=== PATIENT | female | born 1975 | race Caucasian/White ===

== ENCOUNTER 2019-07-11 15:31 | Outpatient (CLI) | payer BC, SELFPAY ==
--- NOTE | 2019-07-11 15:45 | US_ITS ---
WS: [id number] US transvaginal [id number] REASON FOR EXAM: adnexal tenderness FINDINGS: Transvaginal evaluation. There is no evidence of the uterus. There is considerable bowel gas in the pelvis. There is no adnexal masses seen. No fluid collections are seen. US/US transvaginal [id number] IMPRESSION: Hysterectomized pelvis.
== END 2019-07-11 15:32 | disposition home or self-care (01) ==
LOC: US 15:32
PROVIDERS: Family Provider Nurse Practitioner Family; PCP Nurse Practitioner Family; Visit Provider Nurse Practitioner Family
DX: R10.2 Pelvic and perineal pain (principal)
CPT/HCPCS: 76830

== ENCOUNTER → 2019-09-18 15:01 | Outpatient (BNVA) | payer BC, SELFPAY | PROVIDERS: Family Provider Nurse Practitioner Family; PCP Nurse Practitioner Family; Visit Provider Nurse Practitioner Family | DX: R82.4 Acetonuria (principal); E16.2 Hypoglycemia, unspecified | CPT/HCPCS: 81000 ==

== ENCOUNTER → 2019-12-21 14:05 | Outpatient (BNVA) | payer BC, SELFPAY | PROVIDERS: Family Provider Nurse Practitioner Family; PCP Nurse Practitioner Family; Visit Provider Obstetrics & Gynecology | DX: F41.9 Anxiety disorder, unspecified (principal); N99.3 Prolapse of vaginal vault after hysterectomy; R32 Unspecified urinary incontinence | CPT/HCPCS: 80053 ==

== ENCOUNTER → 2020-01-17 10:13 | Outpatient (BNVA) | payer BC, SELFPAY | PROVIDERS: PCP Nurse Practitioner Family; Visit Provider Internal Medicine | DX: N99.3 Prolapse of vaginal vault after hysterectomy (principal); Z11.59 Encounter for screening for other viral diseases | CPT/HCPCS: 87635 ==

== ENCOUNTER 2020-01-22 11:24 | Observation (INO) | payer BC, SELFPAY ==
--- NOTE | 2020-01-16 10:53 | SUR.PREOP ---
Patient reports hypoglycemic. She states she starts feeling bad when drops down into the 80's. Patient requests her sugar be watched.
[2020-01-16 10:54] VITALS: BMI 24.5
[2020-01-22] VITALS (16 sets, daily range): BP systolic 109–142; BP diastolic 72–93; PULSE 59–83; RESP 14–20; TEMP 34.7–36.7; O2SAT 97–100
[2020-01-22] MEDS: sodium chloride 0.9% 1,000 ML 30 ML IV (08:28)
[2020-01-22] MEDS: ketorolac 30 mg/mL INJ IVP (08:28)
[2020-01-22] MEDS: phenazopyridine 100 mg Tablet 200 MG PO ×2 (08:28→14:17)
[2020-01-22 08:37] LABS: Glucose Point of Care 79 mg/dL (70-110)
--- NOTE | 2020-01-22 08:41 | ANES.PREANE2 ---
Pre-Anesthetic Assessment Pre-Anesthetic Assessment: Height/Weight: Height 1.55 m Weight 58.967 kg Temp Pulse Resp BP Pulse Ox 97.9 F 70 18 115/93 98 01/22/20 08:17 01/22/20 08:17 01/22/20 08:17 01/22/20 08:17 01/22/20 08:17 Preop Diagnosis: Vaginal vault prolapse after hysterectomy, Cystocele Proposed Procedure: Operation Date: 01/22/20 09:20 Proposed Procedures p Laparoscopic Uterosacral Ligament Suspen 51076 92020 98857 N99.3 N81.11(Not Applicable) - Sanchez More MD s Anterior Repair(Not Applicable) - Sanchez More MD s Cystoscopy(Not Applicable) - Sanchez More MD Familial anesthetic complications: None Was Beta Lisa taken within 24 hours: N/A Last intake: Intake Last Liquid Date 01/21/20 Last Liquid Time 22:20 Last Solid Date 01/21/20 Last Solid Time 20:00 Social: Social History: No alcohol and No tobacco Exam: Pre-Anes Outpt Exam: alert, oriented x 3, clear to auscultation bilaterally and regular rate & rhythm Airway: Cervical ROM: WNL MP: 2 Dentition: Full Metabolic: Comments: hypoglycemia - BG 70 administer amp D50 Anesthetic Plan: ASA status: 1 Anesthesia: General Risk of > 500 ml blood loss (7ml/kg in children): No Meds/Allergies Current Medications: Current Medications Generic Name Dose Route Start Last Admin Trade Name Freq PRN Reason Stop Dose Admin Sodium Chloride 1,000 mls @ 30 ml s/hr 01/22/20 07:30 01/22/20 08:28 Sodium Chloride 0.9% IV 01/23/20 07:29 30 mls/hr .Q24H DENIS Administration PFSH Anesthesia PFSH: Medical History Anxiety Hypoglycemia Surgical History History of bilateral tubal ligation (~11/2006) History of breast biopsy 02/2006 - left - benign. 08/2004 - Left - benign. History of dilation and curettage (~12/1995) miscarriage History of endometrial ablation (07/18/07) Therma[employer] endometrial ablation. Dx: Menorrhagia, Dysmenorrhea. Performed by Dr. More at [facility] in [place], [place]. History of hernia repair (~12/2011) History of laparoscopic cholecystectomy (~10/2005) History of laparoscopic-assisted vaginal hysterectomy (10/25/11) LAVH with Anterior colporrhaphy. Performed by Dr. Elizalde at [facility] in [place], [place] History of laparoscopy (~09/1999) evaluation of endometriosis Family History Father Hypertension Sister Hypertension Social History Smoking and tobacco status: never smoked Alcohol intake: never Data Anesthesia Other Labs: Laboratory Results - last 48 hr 01/22/20 08:34 POC Glucose 79 Cardiac Studies: No Data to Display
[2020-01-22] MEDS: dextrose 50% syringe 50 mL IVP (08:48)
--- NOTE | 2020-01-22 08:49 | W.PM.OPSUD ---
Surgery/Procedure H&P Update DATE OF PROCEDURE: January 22, 2020 DATE H&P PERFORMED: 01/18/20 H&P UPDATE INFORMATION: I have reviewed H&P completed within last 30 days, I have examined patient prior to procedure, No changes to prior documentation and H&P is in [facility] EMR on date indicated PREOP DIAGNOSIS: Vaginal vault prolapse after hysterectomy, Cystocele PLANNED PROCEDURE: Operation Date: 01/22/20 09:20 Proposed Procedures p Laparoscopic Uterosacral Ligament Suspen 65295 11649 90945 N99.3 N81.11(Not Applicable) - Sanchez More MD s Anterior Repair(Not Applicable) - Sanchez More MD s Cystoscopy(Not Applicable) - Sanchez More MD
[2020-01-22 08:50] LABS: Basophils # 0.1 10^3/uL (0.0-0.1); Eosinophils # 0.3 10^3/uL (0.0-0.8); Eosinophils % 5.8 %; Hematocrit 48.3 % (37.0-47.0); Hemoglobin 15.5 g/dL (11.5-15.3); Lymphocytes # 1.8 10^3/uL (0.8-4.8); Mean Corpuscular HGB Conc 32.1 g/dL (30.0-36.0); Mean Corpuscular Hemoglobin 29.7 pg (28.0-34.0); Mean Corpuscular Volume 92.5 fL (81-99); Mean Platelet Volume 10.1 fL (7.4-10.4); Monocytes # 0.4 10^3/uL (0.2-0.9); Monocytes % 6.6 %; Neutrophils # 3.26 10^3/uL (1.8-7.7); Neutrophils % 55.3 %; Nucleated Red Blood Cells % 0 %; Platelet Count 238 10^3/cmm (130-400); Red Blood Count 5.22 10^6/uL (4.1-5.3); Red Cell Distribution Width 12.5 % (12.1-15.1); White Blood Count 5.9 10^3/uL (4.0-10.0)
--- NOTE | 2020-01-22 10:27 | SUR.OPER ---
Called and notified him of surgical status.
--- NOTE | 2020-01-22 11:24 | P.OP_ITS ---
Operative Report Date of procedure: January 22, 2020 Pre-op Diagnosis: Vaginal vault prolapse after hysterectomy, Cystocele Post-op Diagnosis: Vaginal vault prolapse after hysterectomy Procedure Done: Laparoscopic uterosacral ligament suspension with enterocele repair Specimens removed/disposition: None Surgeon: Sanchez More [employer] Lab Technician: Kandis Anesthesia: General Estimated blood loss (mL): 10 IV fluids (mL): 900 Complications: None Findings: Second-degree vault prolapse with second to third-degree cystocele. Filmy adh esions between the sigmoid and the vaginal cuff. Normal-appearing ovaries bilaterally. Enterocele present. Brief History: Patient is a 44-year-old white female 4, para 3-0-1-3 who is status post hysterectomy. She presented to the office on 12/21/2019 with a complaint of prolapse problems which is been present for approximately 3 years. She stated it has been slowly worsening over that time. She states she now notices a bulge at the vaginal opening which occasionally protrudes beyond. She reports having the sensation that she needs to urinate all the time and will urinate small volumes. She denied leaking with coughing, sneezing, laughing, unless she has a full bladder. She reported urinary urgency with incontinence. She had had a prior anterior repair at the time of her hysterectomy in 2011. On exam, she was noted to have a first to second-degree vaginal vault prolapse with a second- degree cystocele at rest and third degree cystocele with Valsalva. I had discussed with her previously that re-supporting the vaginal vault may correct the cystocele without treatment for the itself being needed. Treatment options had been discussed with her and she was presenting for surgical repair. Procedure: The patient was taken to the operating room where general anesthesia was obtained. She was prepped and draped in the usual sterile fashion in the dorsal supine position with legs in Rangel style stirrups. Sequential compression boots were placed prior to starting the case. Bladder was drained and exam under anesthesia was performed. She was found to have second-degree vaginal vault prolapse with second to third-degree cystocele. The infraumbilical region was injected with 2% lidocaine with epinephrine. Skin incision was made with a knife in the lower edge of the navel and a size 10 trocar and sheath were inserted under direct visualization using an Optiview type technique. Trocar was removed and replaced with just the laparoscope confirming intra-abdominal placement. The anterior abdominal wall was inspected and noted to be free of adhesions. In the right and left lower quadrants and approximately 2 fingerbreadths above the pubic symphysis in the midline, the skin was injected with 2% lidocaine with epinephrine. Skin incision was made with the knife and a 5 mm trocar and sheath were inserted under direct visualization at each site. The pelvis was thoroughly inspected. Both ovaries appeared normal. She had filmy adhesions between the sigmoid and the vaginal cuff. These were taken down sharply with scissors. Enterocele was noted in addition to the vault prolapse. An EEA sizer was used for displacement of the vaginal cuff during surgery. Both ureters were identified. A modified Moschcowitz culdoplasty was performed using 2-0 silk suture. Starting at the posterior side of the vaginal cuff the peritoneum was picked up and a strafing fashion completely around the pelvis. Care was taken not to incorporate the ureters into the stitch. Once the stitch was placed it was tied which closed the enterocele. The vaginal cuff was displaced in a cephalad direction identifying the the furthest displacement of the cuff. Using 0 Ethibond suture, stitch was placed into the right uterosacral ligament at the level of the displacement of the cuff. Care was taken not to incorporate the ureter or bowel in the stitch. The stitch was then placed in the right corner of the vaginal cuff. The suture was then tied. An 0 Ethibond suture was then placed in the left uterosacral ligament at the level of the displacement of the cuff. The left corner of the vaginal cuff was incorporated in the stitch and the suture was then tied. Again care was taken not to incorporate the ureter or the bowel in the suture. Jacinto catheter was removed and cystoscopy was performed. Both ureters were noted to be effluxing urine well. No suture material was noted within the bladder. No bladder masses were noted. Bladder was drained and Jacinto catheter reinserted. The vagina was inspected at this time and minimal cystocele remained at this point. As a result, decision was made not to proceed with an anterior repair. The abdomen was deflated and the ports removed. The suprapubic and umbilical sites were reapproximated using 4-0 Vicryl suture. The right and left lateral sites reapproximated well. Skin glue was applied to all sites. Patient tolerated the procedures well. Sponge and needle counts were correct. DRAINS: None POSTOPERATIVE STATUS: The patient was transferred to the recovery room in satisfactory condition.
--- NOTE | 2020-01-22 11:42 | SUR.PHASEI ---
PT CONTINUES TO SLEEP WITH GOOD RESP EFFORT NOTED SATS 100% ON 8L MASK ABD SOFT SITES X 4 D/I JERRY TO DD WITH LT ORANGE URINE NOTED IN SMALL AMT IN BAG [id number].
--- NOTE | 2020-01-22 11:47 | SUR.PHASEI ---
PT AWAKES ORAL AIRWAY OUT PT ON RA TRIAL, PT SLEEPY BUT NODS HEAD NOT TO PAIN AND NAUSEA QUESTIONS, PT QUICKLY BACK TO SLEEP VSS.
--- NOTE | 2020-01-22 11:58 | SUR.PHASEI ---
PT AWAKE ALERT TALKATIVE ASKING QUESTIONS ABOUT SURGERY , PT VERBALLY DENIES PAIN AND NAUSEA.
--- NOTE | 2020-01-22 12:05 | PM.PACU ---
PACU note Post-Anesthesia Exam: awake and vital signs stable Disposition: admitted
[2020-01-22] MEDS: morphine 4 mg/mL SDV 1 mL IVP (12:31)
[2020-01-22] MEDS: dextrose 5%-lactated ringers 1,000 ML 125 ML IV (12:32)
--- NOTE | 2020-01-22 12:44 | PC.NURSE ---
Patient arrived to OB floor from PACU at this time
--- NOTE | 2020-01-22 13:00 | SUR.PHASEI ---
1215 PT TO FLOOR AWAKE ALERT MOVES SELF TO BED ABD SOFT NO BLEEDING NOTED JERRY PATENT OF TYRELL URINE, BP 123/83, HR 66, RESP 16, SATS 100%
[2020-01-22] MEDS: ondansetron 2 mg/ML SDV 2 mL 4 MG IVP (16:20)
--- NOTE | 2020-01-22 17:34 | PC.NURSE ---
Patient had some nausea and feelings of light headedness while sitting up in the chair, she was given a fan, a cool rag, zofran and a cracker. Patient is feeling better.
[2020-01-22] MEDS: docusate sodium 100 mg Capsule PO (17:59)
[2020-01-22] MEDS: HYDROcodone-acetaminophen 5-325 mg Tablet PO (18:04)
--- NOTE | 2020-01-23 12:51 | P.DS_ITS ---
Discharge Providers Date of Admission: 01/22/20 11:24 Date of Discharge: January 22, 2020 Attending Provider at Admission: Sanchez More MD Attending Provider at Discharge: Sanchez More MD Primary Care Provider: MAREK Duran Reason for Visit Reason for Visit: vaginal vault prolapse after hysterectomy Hospital Course Hospital Course: Patient is a 44-year-old female 4, para 3-0-1-3 who is status post hysterectomy. She presented to the office in November 2019 complaining of prolapse of the been present for approximately 3 years. She reported been slowly worsening and has progressed to the point where she notices a bulge at the vaginal opening which will prolapse beyond this at times. She reports the sensation of needing to urinate and when attempts to urinate will only void small volumes. She denied stress incontinence symptoms unless she has a full bladder. She does report urinary urgency with incontinence. She had had a prior anterior repair at the time of her hysterectomy in 2011. On exam she was noted to have a first to second-degree's vaginal vault prolapse with second- degree cystocele at rest and a third-degree cystocele with Valsalva. Treatment options were discussed with her and she is presenting for vaginal vault suspension and possible anterior repair. She was admitted to the hospital and had a laparoscopic uterosacral ligament suspension with laparoscopic enterocele repair performed on 01/22/2020. She did well with the surgery. She was initially admitted to the hospital for pain management after surgery she was able to be switched to oral medication later on in the day. She tolerated liquids without nausea or vomiting. She was able to ambulate without lightheadedness or dizziness. She was able to urinate without difficulty. She was requesting to go home. Physical exam: See below Plan Discharged home. Discharge instructions discussed with her. She was to follow- up in the office in 2 and 6 weeks following surgery. Physical Exam Const: COMMON NORMALS: no acute distress, average body habitus, alert and well nourished GENERAL APPEARANCE: well developed ORIENTATION/CONSCIOUSNESS: Yes oriented to person, Yes oriented to place and Yes oriented to time GI: COMMON NORMALS: Soft to palpation, No hepatosplenomegaly present and no masses INSPECTION: Yes incision (Laparoscopic sites were well approximated with skin glue present.) AUSCULTATION: Yes normoactive bowel sounds PALPATION: Yes Soft to palpation, Yes Tenderness to palpation present (GI) (Mild tenderness in the lower abdomen.), Yes No hepatosplenomegaly present and No Hernia present : COMMON NORMALS: Yes no CVA tenderness BLADDER/KIDNEY EXAM: Yes no CVA tenderness EXTERNAL FEMALE EXAM: No Hernia present Back/Pelvis: COMMON NORMALS: no CVA tenderness Extremity: COMMON NORMALS: no clubbing, cyanosis or edema and no calf tenderness Neuro: SENSORIUM/ORIENTATION: Yes alert, Yes oriented to person, Yes oriented to place and Yes oriented to time Psych: COMMON NORMALS: normal affect MOOD & AFFECT: Yes euthymic mood Urinary Catheter Management^: Jacitno: Cath Placed During This Visit: yes, but has since been removed by the nurse Reason for Continuing Indwelling Catheter: Decision to DC Catheter Urinary Catheter Date of Insertion: 01/22/20 Urinary Catheter Time of Insertion: 09:55 Date Urinary Catheter Removed: 01/22/20 Time Urinary Catheter Discontinued: 17:15 Discharge Data Data Completed and Pending: Pending at discharge Category Date Time Status ES surgery / GI i mages Routine Exams 01/22/20 08:19 Taken Urine Culture [facility] 01/22/20 08:09 Results Vitals: Last Vital Signs Temp 98.0 F 01/22/20 19:56 Pulse 59 L 01/22/20 19:56 Resp 18 01/22/20 19:56 BP 142/82 01/22/20 19:56 Pulse Ox 98 01/22/20 19:56 Discharge Plan Discharge Patient Disposition: Home Condition: Stable Prescriptions: New ibuprofen 800 mg Tablet 800 mg PO TID PRN (Reason: pain) Qty: 40 RF: 0 Continued vit A-vit C-vit B-miiu-cfbvcf 7,160-113-100 rkog-gq-yezk tablet 1 tab PO DAILY RF: 0 duloxetine [Cymbalta] 20 mg capsule,delayed release(DR/EC) 20 mg PO .every other day RF: 0 loratadine [Claritin] 10 mg Tablet 10 mg PO DAILY PRN (Reason: Allergy Symptoms) RF: 0 cholecalciferol (vitamin D3) [Vitamin D3] 25 mcg (1,000 unit) Capsule 25 mcg PO DAILY RF: 0 Discharge Orders: Discharge Order (Routine); Ordered 01/22/20 Ordered By: Sanchez More Referrals: Sanchez More MD [Physician] - (02/06/2020 at 2:00 - postoperative appointment 03/05/2020 at 1:15 - postoperative appointment) Discharge Diet: Regular Discharge Activity: Limit activity as instructed Patient Instructions: Hydrocodone/Acetaminophen (By mouth), Ibuprofen (By mouth), Cystoscopy (DC), Anterior Vaginal Repair (DC), OB Discharge Report, OB Laproscopic Surgery - [facility], OB Food/Drug Interaction Guide Discharge Date/Time: 01/22/20 19:55 Discharge Attestations Time Spent in Discharge Care*: less than 30 min Quality Metrics Clinical Quality Measures During this hospital stay, did patient experience: None Coding Level of Care Code 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
== END 2020-01-22 19:55 | disposition home or self-care (01) ==
LOC: OBGYN 11:25
PROVIDERS: Admitting Provider Obstetrics & Gynecology; PCP Nurse Practitioner Family; Visit Provider Obstetrics & Gynecology
PROC: 0USG4ZZ Reposition Vagina, Percutaneous Endoscopic Approach (ICD-10-PCS; CPT 57425; principal; 2020-01-22 09:20)
PROC: 0TJB8ZZ Inspection of Bladder, Via Natural or Artificial Opening Endoscopic (ICD-10-PCS; CPT 52000; 2020-01-22 09:20)
DX: N99.3 Prolapse of vaginal vault after hysterectomy (principal); N81.11 Cystocele, midline; K66.0 Peritoneal adhesions (postprocedural) (postinfection); E16.2 Hypoglycemia, unspecified
CPT/HCPCS: 57425; 12345; 36416; 82962; 85025; 87086; 96374; 96375; G0378; J0131; J0690; J1885; J2270; J2405; J2704; J3010; J3490; J7030

== ENCOUNTER → 2020-02-06 14:14 | Outpatient (BNVA) | payer BC, SELFPAY | PROVIDERS: PCP Nurse Practitioner Family; Visit Provider Obstetrics & Gynecology | DX: R35.0 Frequency of micturition (principal) | CPT/HCPCS: 80053; 81000 ==

== ENCOUNTER 2020-06-11 15:26 | Outpatient (CLI) | payer BC, SELFPAY ==
--- NOTE | 2020-06-11 15:28 | MM_ITS ---
WS: [id number] BILATERAL SCREENING DIGITAL MAMMOGRAM WITH CAD HISTORY: SCREENING COMPARISON: 05/17/2019 and 05/09/2018 Bilateral CC and MLO views submitted. Computer aided detection analyzed. Breast composition: There are scattered areas of fibroglandular density. No suspicious masses, microc alcifications or architectural distortion. Benign calcifications LEFT breast. MM/[place] [id number] IMPRESSION: BI-RADS: 2-Benign FOLLOW UP: 1 Year Follow-up
== END 2020-06-11 15:27 | disposition home or self-care (01) ==
LOC: RADSHAW 15:28
PROVIDERS: PCP Nurse Practitioner Family; Visit Provider Nurse Practitioner Family
DX: Z12.31 Encounter for screening mammogram for malignant neoplasm of breast (principal)
CPT/HCPCS: 77067

== ENCOUNTER → 2021-02-25 10:38 | Outpatient (BNVA) | payer BC, SELFPAY | PROVIDERS: PCP Nurse Practitioner Family; Visit Provider Nurse Practitioner Family | DX: N89.8 Other specified noninflammatory disorders of vagina (principal); Z78.9 Other specified health status | CPT/HCPCS: 87070; 87205 ==

== ENCOUNTER → 2021-06-17 09:02 | Outpatient (BNVA) | payer BC, SELFPAY | PROVIDERS: PCP Nurse Practitioner Family; Visit Provider Nurse Practitioner Family | DX: R05.9 Cough, unspecified (principal); Z20.822 Contact with and (suspected) exposure to COVID-19 | CPT/HCPCS: 87635 ==

== ENCOUNTER 2021-06-24 08:27 | Outpatient (CLI) | payer BC, SELFPAY ==
--- NOTE | 2021-06-24 08:43 | MM_ITS ---
WS: [id number] BILATERAL DIGITAL SCREENING MAMMOGRAPHY WITH CAD CLINICAL INFORMATION: SCREEN HISTORY: Screening mammogram. No current complaints. COMPARISON: June 11, 2020 TECHNIQUE: Bilateral CC and MLO views. FINDINGS: Scattered fibroglandular densities bilaterally. A few incidental tiny punctate calcifications. No letty picious focal mass, asymmetry, calcifications, or architectural distortion. No evidence of malignancy . MM/[place] [id number] IMPRESSION: BI-RADS: 2-Benign FOLLOW UP: 1 Year Follow-up Recommend return to annual screening mammography.
== END 2021-06-24 08:28 | disposition home or self-care (01) ==
LOC: RADSHAW 08:35
PROVIDERS: PCP Nurse Practitioner Family; Visit Provider Nurse Practitioner Family
DX: Z12.31 Encounter for screening mammogram for malignant neoplasm of breast (principal)
CPT/HCPCS: 77067

== ENCOUNTER → 2022-02-18 15:31 | Outpatient (BNVA) | payer BC, SELFPAY | PROVIDERS: PCP Nurse Practitioner Family; Visit Provider Nurse Practitioner Family | DX: J34.89 Other specified disorders of nose and nasal sinuses (principal); J32.9 Chronic sinusitis, unspecified | CPT/HCPCS: 87426 ==

== ENCOUNTER 2022-06-30 12:43 | Outpatient (CLI) | payer BC, SELFPAY ==
--- NOTE | 2022-06-30 12:57 | MM_ITS ---
WS: [id number] BILATERAL 3D TOMOSYNTHESIS DIGITAL SCREENING MAMMOGRAPHY WITH CAD CLINICAL INFORMATION: SCREENING HISTORY: Screening mammogram. No current complaints. COMPARISON: 2021 TECHNIQUE: Bilateral CC and MLO views. FINDINGS: Inverted nipples unchanged. Scattered fibroglandular densities bilaterally. No suspicious focal mass, asymmetry, calcifications, or architectural distortion. No evidence of malignancy. A few tiny incidental punctate calcifications . MM/[place] [id number] IMPRESSION: BI-RADS: 2-Benign FOLLOW UP: 1 Year Follow-up Recommend return to annual screening mammography.
== END 2022-06-30 12:44 | disposition home or self-care (01) ==
LOC: RAD 12:43
PROVIDERS: PCP Nurse Practitioner Family; Visit Provider Nurse Practitioner Family
DX: Z12.31 Encounter for screening mammogram for malignant neoplasm of breast (principal)
CPT/HCPCS: 77063; 77067

== ENCOUNTER → 2022-07-30 09:34 | Outpatient (BNVA) | payer BC, SELFPAY | PROVIDERS: PCP Nurse Practitioner Family; Visit Provider Nurse Practitioner Family | DX: E55.9 Vitamin D deficiency, unspecified (principal); M25.50 Pain in unspecified joint; D64.9 Anemia, unspecified; E16.2 Hypoglycemia, unspecified | CPT/HCPCS: 85025 ==

== ENCOUNTER 2022-08-01 12:12 | Outpatient (CLI) | payer BC, SELFPAY ==
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
== END 2022-08-01 12:13 | disposition home or self-care (01) ==
PROVIDERS: PCP Nurse Practitioner Family; Visit Provider Nurse Practitioner Family
DX: S09.92XA Unspecified injury of nose, initial encounter (principal); X58.XXXA Exposure to other specified factors, initial encounter
CPT/HCPCS: 70160

== ENCOUNTER → 2023-05-06 14:27 | Outpatient (BNVA) | payer BC, SELFPAY | PROVIDERS: PCP Nurse Practitioner Family; Visit Provider Nurse Practitioner Family | DX: J32.9 Chronic sinusitis, unspecified (principal) | CPT/HCPCS: 87400; 87426 ==

== ENCOUNTER 2023-08-03 15:21 | Outpatient (CLI) | payer BC, SELFPAY ==
--- NOTE | 2023-08-03 15:28 | MM_ITS ---
WS: [id number] BILATERAL 3D TOMOSYNTHESIS DIGITAL SCREENING MAMMOGRAPHY WITH CAD CLINICAL INFORMATION: SCREENING HISTORY: Screening mammogram. No current complaints. COMPARISON: 06/30/2022 TECHNIQUE: Bilateral CC and MLO views. FINDINGS: The breasts are composed of heterogeneous fibroglandular density tissue, which can limit the detectio n of small underlying mass lesions. No suspicious mass, asymmetry, calcifications, or architectural d istortion. No evidence of malignancy. A few incidental benign calcifications IMPRESSION: MM/[place] [id number] BI-RADS: 2-Benign FOLLOW UP: 1 Year Follow-up Recommend return to annual screening mammography.
== END 2023-08-03 15:22 | disposition home or self-care (01) ==
LOC: RAD 15:22
PROVIDERS: PCP Nurse Practitioner Family; Visit Provider Nurse Practitioner Family
DX: Z12.31 Encounter for screening mammogram for malignant neoplasm of breast (principal)
CPT/HCPCS: 77063; 77067

== ENCOUNTER → 2024-03-13 12:39 | Outpatient (BNVA) | payer BC, SELFPAY | PROVIDERS: PCP Nurse Practitioner Family; Visit Provider Internal Medicine Rheumatology | DX: Z79.899 Other long term (current) drug therapy (principal); E55.9 Vitamin D deficiency, unspecified; R76.8 Other specified abnormal immunological findings in serum | CPT/HCPCS: 36415; 80076; 82085; 82306; 82550; 82565; 84439; 84443; 85025; 85651; 86140 ==

== ENCOUNTER → 2024-05-30 15:26 | Outpatient (BNVA) | payer BC, SELFPAY | PROVIDERS: PCP Nurse Practitioner Family; Referring Provider Nurse Practitioner Family; Visit Provider Specialist | DX: S42.255A Nondisplaced fracture of greater tuberosity of left humerus, initial encounter for closed fracture; W19.XXXA Unspecified fall, initial encounter | CPT/HCPCS: 73060 ==

== ENCOUNTER 2024-05-30 16:38 | Outpatient (CLI) | payer BC, SELFPAY | END 2024-05-30 16:39 | disposition home or self-care (01) | LOC: SPT 16:39 | PROVIDERS: PCP Nurse Practitioner Family; Visit Provider Specialist | DX: Z46.89 Encounter for fitting and adjustment of other specified devices (principal); S42.255D Nondisplaced fracture of greater tuberosity of left humerus, subsequent encounter for fracture with routine healing; X58.XXXD Exposure to other specified factors, subsequent encounter | CPT/HCPCS: L3670 ==

== ENCOUNTER → 2024-06-20 15:31 | Outpatient (BNVA) | payer BC, SELFPAY | PROVIDERS: PCP Nurse Practitioner Family; Visit Provider Specialist | DX: S42.255D Nondisplaced fracture of greater tuberosity of left humerus, subsequent encounter for fracture with routine healing; X58.XXXD Exposure to other specified factors, subsequent encounter | CPT/HCPCS: 73030 ==

== ENCOUNTER → 2024-07-16 15:30 | Outpatient (BNVA) | payer BC, SELFPAY | PROVIDERS: PCP Nurse Practitioner Family; Visit Provider Specialist | DX: S42.255D Nondisplaced fracture of greater tuberosity of left humerus, subsequent encounter for fracture with routine healing (principal); X58.XXXD Exposure to other specified factors, subsequent encounter | CPT/HCPCS: 73030 ==

== ENCOUNTER 2024-07-21 06:00 | Outpatient (RCR) | payer BC, SELFPAY | END 2024-08-20 23:59 | disposition home or self-care (01) | LOC: WPT 06:00 | PROVIDERS: Visit Provider Specialist | DX: S42.90XD Fracture of unspecified shoulder girdle, part unspecified, subsequent encounter for fracture with routine healing (principal); X58.XXXD Exposure to other specified factors, subsequent encounter | CPT/HCPCS: 97110; 97112; 97140; 97161; 97530 ==

== ENCOUNTER 2024-08-21 06:00 | Outpatient (RCR) | payer BC, SELFPAY | END 2024-09-19 23:59 | disposition home or self-care (01) | LOC: WPT 06:00 | PROVIDERS: Visit Provider Specialist | DX: S42.90XD Fracture of unspecified shoulder girdle, part unspecified, subsequent encounter for fracture with routine healing (principal); X58.XXXD Exposure to other specified factors, subsequent encounter | CPT/HCPCS: 97110; 97112; 97140; 97530 ==

== ENCOUNTER 2024-08-29 07:45 | Outpatient (CLI) | payer BC, SELFPAY ==
--- NOTE | 2024-08-29 07:50 | MM_ITS ---
WS: [id number] VIEWS: MLO and CC views both breasts. 3D digital tomosynthesis is also included in this exam. Comparison made with prior exam of 12/31/2014, 03/01/2016, 04/05/2017, 05/09/2018, 05/17/2019, 06/11/2020, 06/24/2021, 06/30/2022, 08/03/2023,. Findings: The breasts are heterogeneously dense, which may obscure small masses. No sign of suspicious mass, tumor calcification or architectural distortion. No change. MM/MM scr BI tomosynthesis [id number] Impression: BI-RADS: 2 - Benign FOLLOW-UP: 1 Year Follow-up This mammogram was also analyzed by the Computer Aided Detection System R2 Imag e [employer] Office Supervisor.
== END 2024-08-29 07:46 | disposition home or self-care (01) ==
PROVIDERS: PCP Nurse Practitioner Family; Visit Provider Nurse Practitioner Family
DX: Z12.31 Encounter for screening mammogram for malignant neoplasm of breast (principal); R92.333 Mammographic heterogeneous density, bilateral breasts
CPT/HCPCS: 77063; 77067

== ENCOUNTER 2024-09-20 05:00 | Outpatient (RCR) | payer BC, SELFPAY | END 2024-10-20 23:59 | disposition home or self-care (01) | LOC: WPT 05:00 | PROVIDERS: PCP Nurse Practitioner Family; Visit Provider Specialist | DX: S42.90XD Fracture of unspecified shoulder girdle, part unspecified, subsequent encounter for fracture with routine healing (principal); X58.XXXD Exposure to other specified factors, subsequent encounter | CPT/HCPCS: 97110; 97112; 97530 ==

== ENCOUNTER → 2024-12-28 15:53 | Outpatient (BNVA) | payer BC, SELFPAY | PROVIDERS: PCP Nurse Practitioner Family; Visit Provider Nurse Practitioner Family | DX: R30.0 Dysuria (principal) | CPT/HCPCS: 81000 ==

== ENCOUNTER → 2025-01-01 16:25 | Outpatient (BNVA) | payer BC, SELFPAY | PROVIDERS: PCP Nurse Practitioner Family; Visit Provider Emergency Medicine | DX: N39.0 Urinary tract infection, site not specified (principal) | CPT/HCPCS: 81003; 87086 ==

== ENCOUNTER → 2025-01-18 10:23 | Outpatient (BNVA) | payer BC, SELFPAY | PROVIDERS: PCP Nurse Practitioner Family; Visit Provider Nurse Practitioner Family | DX: N39.0 Urinary tract infection, site not specified (principal) | CPT/HCPCS: 81000; 87086 ==

== ENCOUNTER 2025-01-23 12:00 | Outpatient (CLI) | payer BC, SELFPAY ==
--- NOTE | 2025-01-23 12:15 | US_ITS ---
WS: [id number] RENAL ULTRASOUND HISTORY: R31.9 - Hematuria, unspecified COMPARISON: None available. TECHNIQUE: 2-D and color Doppler imaging of the kidney submitted. Right kidney: 9.7 cm x 4.0 cm x 4.2 cm. Cortex: 1.1 cm Normal echogenicity with no hydronephrosis or mass. Left kidney: 9.8 cm x 4.9 cm x 4.6 cm. Cortex: 1.5 cm Normal echogenicity with no hydronephrosis or mass. Aorta: Normal. Urinary Bladder: Normal distention. US/US renal BI* [id number] IMPRESSION: Normal renal ultrasound.
== END 2025-01-23 12:01 | disposition home or self-care (01) ==
LOC: RAD 12:01
PROVIDERS: PCP Nurse Practitioner Family; Visit Provider Nurse Practitioner Family
DX: R31.9 Hematuria, unspecified (principal)
CPT/HCPCS: 76770; 81000

== ENCOUNTER → 2025-03-18 15:35 | Outpatient (BNVA) | payer BC, SELFPAY | PROVIDERS: PCP Nurse Practitioner Family; Visit Provider Nurse Practitioner Family | DX: R30.0 Dysuria (principal) | CPT/HCPCS: 81000; 87086 ==